=== PATIENT | female | born 1980 | race Caucasian/White ===

== ENCOUNTER 2021-08-02 15:13 | Emergency (ER) | payer MEDICAID, OTHER ==
[2021-08-02] MEDS ORDERED: LORazepam 2 MG/ML SDV IM ONE (15:40)
[2021-08-02] MEDS ORDERED: Ketorolac 30 MG/ML SDV IM ONE (15:40)
== END 2021-08-02 17:06 | disposition home or self-care (01) ==
LOC: JP.ED 15:13
DX: M77.8 Other enthesopathies, not elsewhere classified (principal); F17.210 Nicotine dependence, cigarettes, uncomplicated; Z91.040 Latex allergy status
CPT/HCPCS: 96372; 99283; J1885

== ENCOUNTER 2024-04-02 07:28 | Emergency (ER) | payer MEDICAID | END 2024-04-02 08:21 | disposition home or self-care (01) | LOC: JP.ED 07:28 | DX: J40 Bronchitis, not specified as acute or chronic (principal); Z91.040 Latex allergy status | CPT/HCPCS: 87428-QW; 99284 ==